=== PATIENT | male | born 2000 | race Caucasian/White ===

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

== ENCOUNTER 2023-04-09 12:38 | Emergency (ER) | payer BC, OTHER ==
[~2023-04-09] VITALS: Ht 182.9 cm; Wt 86.2 kg
[2023-04-09 12:47] VITALS: BP_SYST 141
--- NOTE | 2023-04-09 16:10 | NUR ---
MD DR ROSAS AT BEDSIDE
--- NOTE | 2023-04-09 16:15 | NUR ---
PT BIB GIRLFRIEND, AWAKE AND ALERT. PT C/O PAIN TO R KNEE. PT STATED HE LANDED ON HIS KNEE AND HYPEREXTENDED IT YESTERDAY AT 1730 . PT STATE PAIN 5/10, PT DENIES HX AND SX.
--- NOTE | 2023-04-09 16:17 | NUR ---
EMT PLACING SPLINT ON R KNEE, PT ALREADY HAS HIS OWN CRUTCHES FROM HOME.
[2023-04-09] MEDS ORDERED: NAPR-690 PO (16:21)
[2023-04-09 16:25] VITALS: BP_SYST 141
--- NOTE | 2023-04-09 16:56 | NUR ---
discharge instructions reviewed with pt and mother, pt verbalized understanding and denied any questions.
--- NOTE | 2023-04-09 16:56 | NUR ---
Patient given written and verbal discharge instructions and verbalizes understanding. ER MD DR ROSAS discussed with patient the results and treatment provided. Patient in stable condition. ID arm band removed. Rx of NAPROXEN given. Patient educated on pain management and to follow up with PMD. Pain Scale 5/10. Opportunity for questions provided and answered. Medication side effect fact sheet provided.
== END 2023-04-09 16:56 | disposition home or self-care (01) ==
LOC: SED 12:38
DX: S82.141A Displaced bicondylar fracture of right tibia, initial encounter for closed fracture (principal); Z79.899 Other long term (current) drug therapy; W21.05XA Struck by basketball, initial encounter; Y93.67 Activity, basketball; Y92.89 Other specified places as the place of occurrence of the external cause; Y99.8 Other external cause status
CPT/HCPCS: 73564; 99283

== ENCOUNTER 2024-07-18 19:25 | Emergency (ER) | payer BC, OTHER ==
[~2024-07-18] VITALS: Ht 182.9 cm; Wt 82.6 kg
[~2024-07-18 19:25] MED LIST: NAPR-690 PO
[2024-07-18 19:51] VITALS: BP_SYST 133; PULSE 73; RESP 18; TEMP 97.7; O2SAT 97
[2024-07-18] MEDS ORDERED: LIDOCAINE 1% 10 MG/ML, 20 ML MDV INJ ONE (20:00)
[2024-07-18] MEDS: DIPHTH,PERTUSS(ACELL),TET VAC 0.5 ML VIAL (Tdap) I.M. ONE (20:29)
[2024-07-18] MEDS: BACITRACIN 1 GM OINT TP ONE (20:37)
[2024-07-18 22:04] VITALS: BP_SYST 141; PULSE 74; RESP 18; TEMP 98.6; O2SAT 96
[2024-07-18] MEDS: LIDOCAINE/EPI 1% 1:100000 20 ML VIAL INJ ONE (22:04)
== END 2024-07-18 22:04 | disposition home or self-care (01) ==
LOC: SED 19:25
DX: S01.111A Laceration without foreign body of right eyelid and periocular area, initial encounter (principal); Z23 Encounter for immunization; Z79.899 Other long term (current) drug therapy; W18.39XA Other fall on same level, initial encounter; Y93.89 Activity, other specified; Y92.89 Other specified places as the place of occurrence of the external cause; Y99.8 Other external cause status
CPT/HCPCS: 90715; 99283; J2001